=== PATIENT | male | born 1965 | race Two or more races ===

== ENCOUNTER 2017-06-21 13:53 | Emergency (ER) | payer OTHER ==
[~2017-06-21] VITALS: Ht 172.7 cm; Wt 72.6 kg
[2017-06-21] MEDS ORDERED: RITALIN20 MG ORAL (14:21)
[2017-06-21 14:46] VITALS: BP 124/87
--- NOTE | 2017-06-21 14:56 | Emergency Room Report ---
History of Present Illness General Chief Complaint: Medication Refill Source: Patient Present Illness HPI 52-year-old male history of ADHD presenting with medication refill for Ritalin. Patient states that he's been taking medication for 5 years, has run out for the last 2 weeks. Patient states that his doctor is out of town and cannot get the refill. Denies any headache neck pain chest pain shortness of breath. Allergies: Coded Allergies: No Known Allergies (Unverified , 06/21/17) Patient History Past Medical History: see triage record Past Surgical History: none Pertinent Family History: none Reviewed Nursing Documentation: PMH: Agreed, PSxH: Agreed Nursing Documentation-PMH Past Medical History: No History, Except For History Of Psychiatric Problem: Yes - add Review of Systems All Other Systems: negative except mentioned in HPI Physical Exam Vital Signs Date Time Temp Pulse Resp B/P (MAP) Pulse Ox O2 Delivery O2 Flow Rate FiO2 06/21/17 14:14 98.1 71 18 116/75 98 Room Air Sp02 EP Interpretation: reviewed, normal General Appearance: normal inspection, well appearing, no apparent distress, alert, GCS 15, non-toxic Head: normocephalic, atraumatic Eyes: bilateral eye normal inspection, bilateral eye PERRL, bilateral eye EOMI ENT: normal ENT inspection, normal pharynx, normal voice, moist mucus membranes Neck: normal inspection, full range of motion, supple Respiratory: normal inspection, lungs clear, normal breath sounds, no respiratory distress, no retraction, no wheezing, speaking full sentences, chest symmetrical Cardiovascular #1: normal inspection, regular rate, rhythm, no edema, normal capillary refill Cardiovascular #2: 2+ radial (R), 2+ radial (L) Gastrointestinal: normal inspection, non tender, soft, non-distended, no guarding Musculoskeletal: normal inspection, back normal, normal range of motion, non- tender Neurologic: normal inspection, alert, oriented x3, responsive, motor strength/ tone normal, sensory intact, normal gait, speech normal Psychiatric: normal inspection, judgement/insight normal, memory normal Skin: normal inspection, normal color, no rash, warm/dry, well hydrated, normal turgor Medical Decision Making Diagnostic Impression: Primary Impression: Encounter for medication refill ER Course 52-year-old male here for medication refill Plan: No intervention ER course: Patient has remained stable during ED stay. Disposition: Patient is to be discharged to home. I checked the [facility] site and patient was prescribed a medication from different doctors. Patient was informed that this is a controlled substance and I will not refill this prescription. Patient is not in acute distress and there is no emergent need for this medication. Patient was instructed to followup with his primary care doctor or psychiatrist for medication refill. Please note that this Emergency Department Report was dictated using [employer] technology software, occasionally this can lead to erroneous entry secondary to interpretation by the dictation equipment Last Vital Signs Date Time Temp Pulse Resp B/P (MAP) Pulse Ox O2 Delivery O2 Flow Rate FiO2 06/21/17 14:46 98.1 78 16 124/87 99 Room Air Disposition: HOME, SELF-CARE Condition: Stable Patient Instructions: Medicine Refill at the Emergency Department Additional Instructions: Please followup with her psychiatrist or primary care doctor for medication refill Merlin Horowitz M.D. Jun 21, 2017 14:56
== END 2017-06-21 14:46 | disposition home or self-care (01) ==
LOC: EMR 14:30
DX: Z76.0 Encounter for issue of repeat prescription (principal)
CPT/HCPCS: 99281

== ENCOUNTER 2020-10-23 20:55 | Emergency (ER) | payer OTHER ==
[~2020-10-23] VITALS: Ht 172.7 cm; Wt 79.8 kg
[~2020-10-23 20:55] MED LIST: RITALIN20 MG ORAL
[2020-10-23] MEDS ORDERED: Lidocaine 2% Visc 15ml soln ORAL ONE (21:15)
[2020-10-23] MEDS ORDERED: Mylanta II UD 30ml ORAL ONE (21:15)
--- NOTE | 2020-10-23 21:15 | NUR ---
ED Nurse Note: Patient came in the ED from home, complaining of acid reflux for the past three months, has been on protonix without any improvement.
[2020-10-23] MEDS ORDERED: Omnipaque-300 100ml vial INJ PRN (21:30)
[2020-10-23 21:43] LABS: APPEARANCE,URINE CLEAR; BILIRUBIN, URINE NEGATIVE (NEGATIVE); COLOR,URINE PALE YELLOW; GLUCOSE, URINE (UA) NEGATIVE (NEGATIVE); KETONES,URINE NEGATIVE (NEGATIVE); LEUKOCYTE ESTERASE ,URINE NEGATIVE (NEGATIVE); NITRITE,URINE NEGATIVE (NEGATIVE); PH,URINE 5 (4.5-8.0); PROTEIN,URINE NEGATIVE (NEGATIVE); UROBILINOGEN,URINE NORMAL MG/DL (0.0-1.0)
--- NOTE | 2020-10-23 21:44 | Emergency Room Report ---
History of Present Illness General Chief Complaint: Abdominal Pain Source: Patient (Nathan Morton MD) Present Illness HPI 55-year-old male history of gastritis, GERD, currently on pantoprazole presents with burning epigastric pain refluxing into his mouth, severity is moderate, constant no aggravating relieving factors has been ongoing this morning acutely worsening no chest pain or shortness of breath no dyspnea on exertion patient presents for evaluation and treatment (Nathan Morton MD) Allergies: Coded Allergies: No Known Allergies (Unverified , 06/21/17) COVID-19 Screening Contact w/high risk pt: No Experienced COVID-19 symptoms?: No COVID-19 Testing 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: No (Nathan Morton MD) Patient History Past Medical History: see triage record Reviewed Nursing Documentation: PMH: Agreed; PSxH: Agreed (Nathan Morton MD) Review of Systems All Other Systems: negative except mentioned in HPI (Nathan Morton MD) Physical Exam Vital Signs Date Time Temp Pulse Resp B/P (MAP) Pulse Ox O2 Delivery O2 Flow Rate FiO2 10/23/20 20:58 98.2 71 18 125/84 (98) 95 Room Air Sp02 EP Interpretation: reviewed, normal General Appearance: well appearing, no apparent distress, alert Head: normocephalic, atraumatic Eyes: bilateral eye PERRL, bilateral eye EOMI ENT: uvula midline, moist mucus membranes Neck: supple, thyroid normal, supple/symm/no masses Respiratory: lungs clear, no respiratory distress, no retraction, no accessory muscle use Cardiovascular #1: normal peripheral pulses, regular rate, rhythm, no edema, no gallop, no murmur Gastrointestinal: non tender, soft, no guarding, no rebound Musculoskeletal: normal inspection Neurologic: alert, oriented x3 Psychiatric: mood/affect normal Skin: no rash, warm/dry (Nathan Morton MD) Medical Decision Making Diagnostic Impression: Primary Impression: Epigastric abdominal pain Additional Impression: GERD (gastroesophageal reflux disease) Qualified Codes: K21.9 - Gastro-esophageal reflux disease without esophagitis ER Course 55-year-old male presents with epigastric discomfort differential diagnosis includes ACS, pancreatitis, GERD Labs ordered, patient given GI cocktail patient pending results of labs, imaging of the abdomen with CT Patient signed out to Dr. Mccracken (Nathan Morton MD) ER Course Signed out to me. He presents with epigastric pain and said he has this gurgling sound in his stomach this has been ongoing for a year. Laboratory data is unremarkable. CT scan is negative. EKG is normal. He is already taking Protonix. Will discharge home with recommendation for GI referral for endoscopy. (Ramez Mccracken MD) EKG Diagnostic Results Troponin ordered: Yes When was troponin ordered?: Oct 23, 2020 EKG Time: 21:19 EP Interpretation: NSR, rate 82, QTc 464, no acute ST elevations, left axis deviation (Nathan Morton MD) Rhythm Strip Diag. Results Rhythm Strip Time: 21:43 EP Interpretation: yes Rate: 84 Rhythm: NSR, no PVC's, no ectopy (Nathan Morton MD) CT/MRI/US Diagnostic Results CT/MRI/US Diagnostic Results : Imaging Test Ordered: CT abdomen pelvis Impression Negative per radiologist (Ramez Mccracken MD) Last Vital Signs Date Time Temp Pulse Resp B/P (MAP) Pulse Ox O2 Delivery O2 Flow Rate FiO2 10/23/20 20:58 98.2 71 18 125/84 (98) 95 Room Air (Nathan Morton MD) Status: improved (Ramez Mccracken MD) Disposition: HOME, SELF-CARE Condition: Stable Signed Out To: Dr. Mccracken (Nathan Morton MD) Referrals: NON PHYSICIAN (PCP) Additional Instructions: Continue with your medication. Follow-up with your doctor in a week. You may need referral to see a GI doctor for endoscopy. Return if worse. Nathan Morton MD Oct 23, 2020 21:44 Ramez Mccracken MD Oct 23, 2020 23:37
[2020-10-23 21:48] LABS: BASOPHILS % (AUTO) 1.6 % (0.0-2.0); EOSINOPHILS % (AUTO) 2.8 % (0.0-3.0); HEMATOCRIT 49.4 % (42.0-52.0); HEMOGLOBIN 15.5 G/DL (14.2-18.0); LYMPHOCYTES % (AUTO) 34.3 % (20.0-45.0); MEAN CORPUSCULAR VOLUME 85 FL (80-99); NEUTROPHILS % (AUTO) 52.3 % (45.0-75.0); PLATELET COUNT 230 K/UL (150-450); RED BLOOD COUNT 5.84 M/UL (4.70-6.10); RED CELL DISTRIBUTION WIDTH 12.9 % (11.6-14.8); WHITE BLOOD COUNT 9.1 K/UL (4.8-10.8)
[2020-10-23 22:00] LABS: ANION GAP 11 mmol/L (5-15); BLOOD UREA NITROGEN 14 mg/dL (7-18); CALCIUM 8.7 MG/DL (8.5-10.1); CARBON DIOXIDE 26 MMOL/L (21-32); CHLORIDE 108 MMOL/L (98-107); CREATININE 0.9 MG/DL (0.55-1.30); POTASSIUM 3.9 MMOL/L (3.5-5.1); SODIUM 145 MMOL/L (136-145)
[2020-10-23 22:04] LABS: ALANINE AMINOTRANSFERASE 40 U/L (12-78); ALBUMIN 3.9 G/DL (3.4-5.0); ALBUMIN/GLOBULIN RATIO 1.1 (1.0-2.7); ALKALINE PHOSPHATASE 99 U/L (46-116); ASPARTATE AMINO TRANSFERASE 18 U/L (15-37); BILIRUBIN,TOTAL 0.3 MG/DL (0.2-1.0)
[2020-10-23 22:07] VITALS: BP 125/84
--- NOTE | 2020-10-23 23:07 | Diagnostic Imaging Report ---
EXAM: CT Abdomen and Pelvis With Intravenous Contrast CLINICAL HISTORY: PAIN notes: complaining of acid reflux for the past three months TECHNIQUE: Axial computed tomography images of the abdomen and pelvis with intravenous contrast. CTDI is 11.1 mGy and DLP is 603.8 mGy-cm. One or more of the following dose reduction techniques were used: automated exposure control, adjustment of the mA and/or kV according to patient size, use of iterative reconstruction technique. COMPARISON: No relevant prior studies available. FINDINGS: Lung bases: No effusions or consolidation. ABDOMEN: Liver: 10 mm left hepatic lobe cyst. No solid hepatic mass. The portal veins are patent. Gallbladder and bile ducts: Contracted gallbladder. No pericholecystic inflammatory changes. No calcified stones. No ductal dilation. Pancreas: Unremarkable. No ductal dilation. Spleen: Unremarkable. No splenomegaly. Adrenals: Unremarkable. Kidneys and ureters: Bilateral renal cysts. Additional subcentimeter hypoattenuating kidney lesions are identified, too small to characterize but likely representing cysts. No hydronephrosis. 3 mm right renal stone (3: 38). No hydroureter. Stomach and bowel: Unremarkable. No obstruction. No mucosal thickening. Normal CT appearance of the stomach. No hiatal hernia. PELVIS: Appendix: Normal appendix (coronal 27). Bladder: Unremarkable. Reproductive: Unremarkable as visualized. ABDOMEN and PELVIS: Intraperitoneal space: No free air. No significant fluid collection. Bones/joints: No acute fracture. No dislocation. Ankylosis of the bilateral sacroiliac joint. Degenerative osteophytes are noted in the thoracic and lumbar spine. Soft tissues: Unremarkable. Vasculature: Unremarkable. No abdominal aortic aneurysm. Lymph nodes: Unremarkable. No enlarged lymph nodes. IMPRESSION: 1. No acute process identified within the abdomen or pelvis to explain the patient's symptoms. 2. A 3 mm right renal stone. No hydronephrosis or hydroureter.
--- NOTE | 2020-10-23 23:45 | NUR ---
ER DISCHARGE NOTE: Patient is cleared to be discharged per ERMD, pt is aox4, on room air, with stable vital signs. pt was given dc instructions, pt was able to verbalize understanding, pt id band and iv site removed without complications. pt is able to ambulate with steady gait. pt took all belongings.
== END 2020-10-23 23:50 | disposition home or self-care (01) ==
LOC: EMR 21:15
DX: R10.13 Epigastric pain (principal); K21.9 Gastro-esophageal reflux disease without esophagitis
CPT/HCPCS: 36415; 74177; 80053; 81003; 83690; 84484; 85025; 93005; 96374; 99284; Q9965; S0028